=== PATIENT | female | born 1955 | race Caucasian/White ===

== ENCOUNTER 2018-11-11 10:30 | Outpatient (RCR) | payer OTHER, SELFPAY ==
--- NOTE | 2018-11-03 10:55 | HP.OTEVAL_ITS ---
Patient's Visit Information CEASAR MCCORMACK is a 62 year old F, referred to Occupational Therapy by Jose Purvis Jr., MD, with a diagnosis of right contracture of palmar fascia (Dupuytren's). Date of Evaluation: 11/03/18 Occupational Therapist: Silvia Wing, TIERRA/Syl, CHT - Subjective Subjective: THis 62 year old female was seen for inital OT eval following xiaflex injection on - manipulation in the -splint fabricated following manipulation- this is pts 2nd xiaflex injection and manipulation. pt states she was unable to put her hand in her pocket or golves and made FMS more difficult- - Pain right hand 0 - ROM MP: right LF -10/40 PIP: right LF -5/60 DIP: right LF +5/10 - Strength [employer] Certified Orthotist: right NT left 55# Lateral Pinch: right NT left 12# Tripod Pinch: rigth NT left 12# - Edema PIP: right MF 6.2 left 5.5 - Quick DASH-Disab of Arm,Shoulder& Hand Quick DASH Score: 9.0900 - Goals Goal:: pt will demo the ability to form a composite fist to hold and manipulate money by d/c. pt will demo full ext of right LF for pt to ind. place hand in pocket and put gloves on by d/c. Goal:: pt will demo understanding of scar mtg by end of 2nd session to decrase scar adhesions Goal:: complete closer of wound by d/c - Rehabilitation General Assessment: Pt Sx right xiaflex injection followed with manipulation on 10/30/18. Pt demo with edema- limited ROM and skin tear just proximal PIP. Pt would benefit from skilled OT services to return pt to PLOF. Therapy ORDER req. OT services 1x week for 6 weeks. Today pt was ed. on AROM, AAROM and edema control. pt demo understanding and was given handout on HEP. Rehabilitation Potential: Good - Anticipated Interventions Anticipated Interventions: A/AAROM/PROM, Edema Control, Wound Care, Modalities, Orthoses - Visit Plan Frequency: 1x/Week Duration: 6 Weeks TEXT: Thank you for the opportunity to evaluate your patient. For Medicare and Medicare HMO plans, please review the plan of care and approve it. It will need to be FAXED BACK to us at [phone] for Medicare purposes. Please let me know if there are questions or concerns regarding this plan of care. Physician Signature: Date:
--- NOTE | 2018-11-11 10:44 | HP.OTDCSUM ---
HP - OT D/C Summary It has been my pleasure to treat CEASAR MCCORMACK under orders from Jose Purvis Jr., MD, for the diagnosis of right contracture of palmar fascia (Dupuytren's) for a total of 2 visit(s). Please see the following information for a summary of their discharge status. - Overall Improvement % Improvement: 95 - Objective Objective/Function: MCP +5/90. PIP 0/95. DIP +15/ - Goals Patient Goals: Regain Mobility, Decrease Swelling/Stiffness, Improve Fine Motor Skills, Use Hand/Wrist/Arm Normally Again, Increase ROM Goal:: pt will demo the ability to form a composite fist to hold and manipulate money by d/c. pt will demo full ext of right LF for pt to ind. place hand in pocket and put gloves on by d/c. Goal:: pt will demo understanding of scar mtg by end of 2nd session to decrase scar adhesions Goal:: complete closer of wound by d/c - Plan Plan: D/C - D/C Information Discharge Comments: pt arrives to her 2nd visit with healed wound and demo full functional ROM of LF- orhosis is fitting her well pt reports she is using nightly. pt reports she is ind. with ADLs and IADLs- pt has met goals in OT and is D/C at this time. pt was advised if during any time her orthosis needs adj. to return to have adj. made- pt demo understanding. If there are questions or concerns regarding this patient's occupational therapy, please fell free to call me at [phone]. Thank you for the referral of this patient. Sincerely, Silvia Wing, OTR/L, CHT
== END 2018-11-11 19:00 | disposition home or self-care (01) ==
LOC: OT 10:30
PROVIDERS: Family Provider Family Medicine; PCP Family Medicine
DX: M72.0 Palmar fascial fibromatosis [Dupuytren] (principal)
CPT/HCPCS: 97166; 97530

== ENCOUNTER 2022-01-09 15:22 | Outpatient (CLI) | payer MEDICARE, OTHER, SELFPAY ==
--- NOTE | 2022-01-09 | IMM_PTH ---
PATIENT: CEASAR MCCORMACK LOC: [facility] U#:[id number] AGE/SX: 66/F ROOM: RE01/09/[address]: Dr. Blue Altamirano MD : 1955 BED: DIS: 01/09/2022 SPEC #: [id number] RECD: 01/11/22 14:27 STATUS: ALETA REEloise #: [id number] BRENDA: 01/09/22 00:[address]: Blue Altamirano DEPT: IMMUNOHISTOCHEMISTRY RECD BY: Kari Yang ENTERED: 01/11/22 14:27 SP TYPE: IMMUNO OTHR DR: FRANKLIN Machado Tissues: Palate, NOS Procedures: p16 (initial) KI-67 (add) PHYSICIAN & INSTITUTION [place] [id number] SPECIMEN INFORMATION: Tissue Source: Soft palate neoplasm Clinical Info: Soft palate neoplasm Specimen Number: [id number] CPT code: 47761, 78488 METHODOLOGY: Deparaffinized sections of prefer/formalin-fixed tissue or PAP/DQ stained slides are incubated with monoclonal/polyclonal antibodies/oligonucleotide probes. Localization is made via biotin free immunoperoxidase method. Appropriate controls are performed and reacted as expected. Results on target cell population are indicated in the following table: RESULTS: ANTIBODY / CLONE RESULT P16 (E6H4) negative Ki-67 (30-9) positive, moderate These tests were developed and their performance characteristics determined by [facility]. They may not have been cleared or approved by the U.S. Food and Drug Administration. The FDA has determined that such clearance or approval is not necessary. The above immunohistochemical/dualISH markers are ordered and reviewed by the Pathologist. 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 RAE:ralph 01/12/2022
--- NOTE | 2022-01-09 13:30 | TISS_PTH ---
PATIENT: CEASAR MCCORMACK LOC: [facility]#:[id number] AGE/SX: 66/F ROOM: RE01/09/[address]: Dr. Blue Altamirano MD : 1955 BED: DIS: 01/09/2022 SPEC #: [id number] RECD: 01/09/22 14:56 STATUS: ALETA CLYDE #: [id number] BRENDA: 01/09/22 13:[address]: Blue Altamirano DEPT: SURGICAL PATHOLOGY RECD BY: Esthela Domínguez ENTERED: 01/10/22 09:49 SP TYPE: Tissue Bx OTHR DR: FRANKLIN Machado Tissues: Palate, NOS Procedures: Surgery Specimen Level IV HEADER OPERATION: Not noted PRE-OP DIAGNOSIS: Soft palate neoplasm TISSUE SUBMITTED: Soft palate neoplasm MICROSCOPIC DIAGNOSIS Soft palate neoplasm, biopsy: Squamous papilloma with moderate atypia. See comment. RAE:ralph 01/11/2022 COMMENT Results from immunohistochemistry ([id number]) for surrogate HPV marker (p16) will be reported separately. MICROSCOPIC DESCRIPTION Slides are reviewed. GROSS DESCRIPTION Received in fixative is one container labeled with the patient's name and designated soft palate neoplasm. The specimen consists of a piece of chaudhari soft tissue measuring 0.6 x 0.3 x 0.1 cm. The specimen is totally submitted in one cassette. / SJ:ralph 01/10/2022 TC:1 CPT: 15295 ADDENDUM ADDENDUM ADDENDUM ADDENDUM ADDENDUM ADDENDUM ADDENDUM ADDENDUM ADDENDUM ADDENDUM 06/14/2022 10:29 ADDENDUM 06/14/2022 10:29 ADDENDUM 06/14/2022 10:29 ADDENDUM 06/14/2022 10:29 ADDENDUM 06/14/2022 10:29 This addendum is added to incorporate an outside pathology consultation report. The case was examined at [facility] (#[id number]) and the following diagnosis was rendered. Specimen designated ?soft palate neoplasm,? 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 Please see complete above mentioned consultation report in EMR
== END 2022-01-09 23:59 | disposition home or self-care (01) ==
LOC: LABSPEC 15:29
PROVIDERS: Referring Provider Otolaryngology; Visit Provider Otolaryngology
DX: D10.39 Benign neoplasm of other parts of mouth (principal)
CPT/HCPCS: 88305; 88341; 88342